=== PATIENT | female | born 1985 | race American Indian/Alaskan Native ===

== ENCOUNTER 2022-10-20 22:11 | Emergency (ER) | payer OTHER ==
[~2022-10-20] VITALS: Ht 162.6 cm; Wt 75.3 kg
[~2022-10-20 22:11] MED LIST: FOLIC ACID1 MG PO; INTESTINEX1 CAP PO; INTESTINEX680 MG PO; PRENATAL1 TAB PO; PROTONIX40 MG PO; ZANTAC150 MG PO
== END 2022-10-21 05:22 | disposition home or self-care (01) ==
LOC: ER 22:11
DX: K52.9 Noninfective gastroenteritis and colitis, unspecified (principal); Z88.8 Allergy status to other drugs, medicaments and biological substances

== ENCOUNTER 2024-12-15 13:13 | Emergency (ER) | payer OTHER ==
[~2024-12-15] VITALS: Ht 162.6 cm; Wt 68.0 kg
[2024-12-15] MEDS ORDERED: BARIUM SULFATE 450 ML ORAL.SUSP PO ONE (14:26)
[2024-12-15] MEDS ORDERED: MORPHINE SULFATE 4 MG/ML VIAL IV ONE (14:30)
[2024-12-15 15:59] LABS: BASO % 0.6 % (0.1-1.2); EOS # 0.05 (0.04-0.54); EOS % 0.6 % (0.7-7.0); HEMATOCRIT 39.2 % (34.1-44.9); HEMOGLOBIN 13.2 g/dL (11.2-15.7); LYMPH # 2.15 (1.18-3.74); LYMPH % 26.4 % (19.3-53.1); MEAN CORPUSCULAR HEMOGLOBIN 28.8 pg (25.6-32.2); MONO # 0.67 (0.24-0.82); MONO % 8.2 % (4.7-12.5); PLATELET COUNT 290 K/uL (163-369); RED BLOOD COUNT 4.58 M/uL (3.93-5.22); RED CELL DISTRIBUTION WIDTH 13.1 % (11.6-14.4)
[2024-12-15 16:16] LABS: PH,URINE 7.5 (5.0-8.0); URINE APPEARANCE Clear; URINE BILIRRUBIN Negative (NEGATIVE); URINE BLOOD Trace; URINE COLOR Dark Yellow; URINE GLUCOSE Negative (NEGATIVE); URINE KETONE Negative (NEGATIVE); URINE LEUKOCYTE Negative; URINE NITRATE Positive; URINE PROTEIN Negative (NEGATIVE)
[2024-12-15 16:18] LABS: CALCIUM 9.5 mg/dL (8.5-10.1); CREATININE SERUM 0.79 mg/dL (0.55-1.02); GFR 80.2; POTASSIUM 4.07 mEq/L (3.5-5.1)
[2024-12-15 16:18] LABS: URINE BACTERIA 106.4 uL (0.0-1933); URINE EPITHELIAL CELLS 8.3 uL (0.0-38.8); URINE RBC 7.3 uL (0.0-20.8); URINE WBC 5.8 uL (0.0-23.2)
[2024-12-15] MEDS ORDERED: ONDANSETRON HCL 2 MG/ML VIAL IV ONE (17:30)
[2024-12-15] MEDS ORDERED: FAMOtidine 10 MG/ML (4ML VIAL) IV ONE (17:30)
[2024-12-15] MEDS ORDERED: ONDANSETRON HCL 2 MG/ML VIAL ONE (17:40)
[2024-12-15] MEDS ORDERED: FAMOTIDINE/PF 20 MG/2 ML VIAL ONE (17:40)
[2024-12-15] MEDS ORDERED: PEPCID AC20 MG PO (18:15)
[2024-12-15] MEDS ORDERED: BACTRIM DS TAB1 EACH PO (18:15)
== END 2024-12-15 18:26 | disposition home or self-care (01) ==
LOC: ER 14:02
PROVIDERS: Emergency Medicine
DX: N39.0 Urinary tract infection, site not specified (principal); R10.2 Pelvic and perineal pain; R30.0 Dysuria; Z88.6 Allergy status to analgesic agent; K57.30 Diverticulosis of large intestine without perforation or abscess without bleeding